=== PATIENT | male | born 1980 | race Caucasian/White ===

== ENCOUNTER → 2021-12-01 | Outpatient (CLI) | payer BC ==
--- NOTE | 2021-12-01 21:44 | CT ---
EXAMINATION TYPE: CT foot RT wo con DATE OF EXAM: 12/01/2021 COMPARISON: None available HISTORY: 41-year-old male, pain CT DLP: 240.8 mGycm Automated exposure control for dose reduction was used. TECHNIQUE: CT scan of the right foot without IV contrast administration with 3-D reconstruction image s. FINDINGS: Commute nondisplaced fracture of the distal and inferior aspects of the medial cuneiform bone with mu ltiple bone fragments measuring up to 12 mm and extension of the fracture into the breast t arsometatarsal articulation as well as the medial cuneiform-middle cuneiform and medial cuneiform-sec ond metatarsal articulations. Similar yet milder comminuted fracture is seen involving the inferior aspect of the lateral cuneiform bone with multiple fragment and extension into the third tarsometatarsal articulation. Subtle fractu re is also seen at the inferior aspect of the base of the third metatarsal bone. Thin bone chip is seen at the lateral aspect of the lateral cuneiform bone measuring 11 mm with simil ar bony chip along the lateral aspect of the cuboid bone measuring 9 mm, likely representing avulsion fractures. Suspected very tiny avulsion fracture of the most inferior aspect of the base of the seco nd metatarsal bone. Apparently intact fourth and fifth metatarsal bones. No definite navicular, calcaneal or talar fractu re identified. Questionable nondisplaced subtle fracture at the posterior aspect of the lateral malle olus which could be chronic or artifactual. No other definite acute fracture line identified. No siza ble ankle joint effusion. Mild soft tissue swelling of the dorsum of the foot. IMPRESSION: Multiple fractures involving the distal tarsal bones and adjacent metatarsal bases as detailed above, likely representing sequela of crush injury of the foot, please correlate clinically. Recommend furt her orthopedic consultation.
== END | disposition home or self-care (01) ==
LOC: RADCTMAIN 16:50
PROVIDERS: ATTEND Orthopaedic Surgery
DX: M79.671 Pain in right foot (principal); I10 Essential (primary) hypertension

== ENCOUNTER 2021-12-11 08:20 | Day surgery (SDC) | payer BC ==
[2021-12-10 09:34] VITALS: BMI 27.8
[2021-12-11] MEDS ORDERED: ONDANSETRON 4 MG/2 ML VIAL IVP ONE (08:35)
[2021-12-11] MEDS ORDERED: LACTATED RINGERS 1,000 ML IV SCH (08:35)
[2021-12-11] MEDS ORDERED: DEXAMETHASONE SOD PHOSPHATE 4 MG/ML 1 ML VIAL IV ONE (08:35)
[2021-12-11] MEDS ORDERED: SCOPOLAMINE 1.5MG/72HR PATCH TRANSDERM ONE (08:35)
[2021-12-11] MEDS ORDERED: MIDAZOLAM 2 MG/2 ML VIAL IV PRN (08:35)
[2021-12-11] MEDS ORDERED: LIDOCAINE 1% (10MG/ML) FOR IV START INTRADERMA ONE (09:00)
[2021-12-11] MEDS ORDERED: MIDAZOLAM 2 MG/2 ML VIAL IVP ONE (09:33)
[2021-12-11] MEDS ORDERED: fentaNYL (PF) 50 MCG/ML 2 ML AMP IVP ONE (09:33)
[2021-12-11] MEDS ORDERED: SODIUM CHLORIDE 0.9% (PF) 10 ML VIAL ONE (10:29)
[2021-12-11] MEDS ORDERED: LIDOCAINE 1% INJ 10MG/ML (20 ML MDV) ONE (10:29)
[2021-12-11] MEDS ORDERED: fentaNYL (PF) 50 MCG/ML 2 ML AMP ONE (10:29)
[2021-12-11] MEDS ORDERED: HYDROmorphone (PF) 1 MG/ML ONE (10:29)
[2021-12-11] MEDS ORDERED: ROPIVACAINE 5 MG/ML 30 ML VIAL ONE (10:29)
[2021-12-11] MEDS ORDERED: PROPOFOL 10 MG/ML 20 ML VIAL IV ONE (10:29)
[2021-12-11] MEDS ORDERED: MIDAZOLAM 2 MG/2 ML VIAL ONE (10:29)
[2021-12-11] MEDS ORDERED: PHENYLEPHRINE-0.9% NACL SYG 1,000 MCG/10 ML SYRINGE ONE (10:29)
--- NOTE | 2021-12-11 10:29 | P.ANPRN ---
Procedure Note - Anesthesia - Nerve Block Performed Right Popliteal Single Time Out Performed: Yes (932) Date of Procedure: 12/11/21 Procedure Start Time: 09:33 Procedure Stop Time: 09:36 Location of Patient: PreOp Indication: Acute Post-Operative Pain, Requested by Surgeon Specifically requested for management of pain by DrCherry: Andrew Willson Sedation Type: Sedate with meaningful contact maintained Preparation: Sterile Prep Position: Left Lateral Catheter: None Needle Types: Pajunk Needle Gauge: 21 Ultrasound used to visualize needle placement: Yes Ultrasound used to observe medication spread: Yes Injectate: 0.5% Ropivacaine (see comment for volume) (15cc+15cc nacl pf) Blood Aspirated: No Pain Paresthesia on Injection Noted: No Resistance on Injection: Normal Image Stored and Saved: Yes Events: Uneventful and Well Tolerated
--- NOTE | 2021-12-11 10:30 | P.ANPRN ---
Procedure Note - Anesthesia - Nerve Block Performed Right Adductor Canal Single Time Out Performed: Yes (0932) Date of Procedure: 12/11/21 Procedure Start Time: 09:37 Procedure Stop Time: 09:38 Location of Patient: PreOp Indication: Acute Post-Operative Pain, Requested by Surgeon Specifically requested for management of pain by DrCherry: Andrew Willson Sedation Type: Sedate with meaningful contact maintained Preparation: Sterile Prep Position: Supine Catheter: None Needle Types: Pajunk Needle Gauge: 21 Ultrasound used to visualize needle placement: Yes Ultrasound used to observe medication spread: Yes Injectate: 0.5% Ropivacaine (see comment for volume) (15cc + 15cc nacl) Blood Aspirated: No Pain Paresthesia on Injection Noted: No Resistance on Injection: Normal Image Stored and Saved: Yes Events: Uneventful and Well Tolerated
[2021-12-11] MEDS ORDERED: BUPIVACAINE (PF) 0.25% 30 ML VIAL SQ ONE (10:45)
[2021-12-11] MEDS ORDERED: LACTATED RINGERS 1,000 ML IV ONE ×2 (11:47)
[2021-12-11 12:24] VITALS: TEMP 98.8
[2021-12-11] MEDS: HYDROmorphone 0.5 MG/0.5 ML SYRINGE IVP PRN ×2 (12:28→12:37)
[2021-12-11] MEDS ORDERED: KETOROLAC 15 MG/ML 1 ML VIAL IVP ONE (12:30)
--- NOTE | 2021-12-11 12:35 | P.OP ---
Date of Procedure: 12/11/21 Preoperative Diagnosis: Lisfranc fracture/dislocation right foot Postoperative Diagnosis: Same Procedure(s) Performed: Open reduction with internal fixation of tarsometatarsal joint dislocation right foot Implants: Novastep lisfranc plate and screws Novastep 2 hole Presslock plate and screws 3.5mm cannulated screw Anesthesia: ALAN Surgeon: Andrew Willson Estimated Blood Loss (ml): 3 Pathology: none sent Condition: stable Disposition: PACU Description of Procedure: Patient was brought to the operative room placed on table supine position. Timeout was taken to confirm correct patient identifiers, correct site of surgery, and correct procedure. When the room was in agreement the patient was induced and placed under general anesthesia. A well-padded tourniquet was placed on the right ankle. Then 20 mL of 0.25% Marcaine was injected as right ankle block. The right foot was then prepped and draped in usual manner. The foot was exsanguinated and the tourniquet inflated to 250 mmHg. Utilizing fluoroscopic imaging a metal pointer was used to highlight the first tarsometatarsal joint. A lazy S incision was made laterally over the first webspace at the proximal first and second TMT's incision was deepened under the subcu tissue careful to identify, avoid, and retract any neurovascular structures and cauterize any bleeding vessels. Blunt dissection down to the level the joint capsule which was incised exposed to show the articulation b etween the distal lateral surface of the intermediate cuneiform and the medial proximal base of the second metatarsal. And instrument was placed in that area and pressure was placed over the joint showed significant instability and separation of those bony structures. So it guidewire for 3.5 mm screw was placed on the medial side of the medial cuneiform there was advanced through the medial cuneiform with distal and slight dorsal angulation into the base of the second metatarsal. The guidewire was placed bicortically through the second metatarsal. Drilling was done just to the medial cortex of the base of the second metatarsal. Then a 3.5 mm partially-threaded cannulated screw inserted across the guidewire and then it was tightened until the head engaged the bone and medial side of the cuneiform and engaged the lateral cortex of the base of second metatarsal. Its rotation was placed in the intercuneiform space and tension placed on it and it was fully reduced with no instability. Then a Novastep Lisfranc plate was placed over the first and second tarsometatarsal complexes. It was adjusted under direct fluoroscopic visualization then temporally fixated. The proximal screws and the cuneiforms were done first and then the distal compression screws in the first and second metatarsals were done next. Finally the remaining distal locking screws were placed to complete the c onstruct. Stress of the area was done under direct fluoroscopic visualization there is no abnormal movement. Next the metal pointer was then used to highlight the third tarsometatarsal joint articulation. Once determined the incision was made directly over that area. It was deepened bluntly through the saphenous layer down to the periosteum. A Novastep 2 hole presslock plate was positioned across the third tarsometatarsal joint. Fluoroscopy was used to adjust the overall alignment and once aligne was held in place temporarily. The wound on drill hole was done through the proximal portal plate to the lateral cuneiform. Locking screws placed in the plate and engaged the plate but did not fully seated to allow for adjustments of the distal part of plate over the third metatarsal base. The plate was adjusted and then the locking screw was tightened further to prevent any rotation. Drilling was done the centrically for compression across the third tarsometatarsal joint. Then the combination locking/compression screw was inserted and advanced until a compressed the plate and then locked in position. The proximal screws and tightened fully. Final fluoroscopic imaging showed retained alignment of the third tarsometatarsal joint placement of the hardware. All wounds were thoroughly irrigated with anatomic saline. Deep closure on the medial incision was done with 2-0 Vicryl. Subcu closure done for Monocryl. And skin closure done with tory. An Arthrex jumpstart dressing was placed over both all the incisions and covered with a bulky dry dressing. The tourniquet was released and capillary refill return to all digits on the right foot. The patient was then placed in a well- padded, well molded plaster posterior mold/sugar tong splint. The ankle held in neutral position until the area dried. Then anesthesia was reversed and the patient was taken recovery with vital signs stable.
[2021-12-11 13:36] VITALS: RESP 16
[2021-12-11] MEDS ORDERED: HYDROcodone/APAP 7.5-325MG 1 EACH TAB ONE (13:38)
[2021-12-11 14:25] VITALS: BP 133/60; PULSE 71
== END 2021-12-11 14:38 | disposition home or self-care (01) ==
LOC: OR 08:20
PROVIDERS: ATTEND Podiatrist
DX: S93.324D Dislocation of tarsometatarsal joint of right foot, subsequent encounter (principal)
CPT/HCPCS: 28465; 64447; 64445; 76942; C1713; J2250; J1100; J0690; J2405; J2001; J3010; J1170 ×2; J2795; J1885; J2370; J2704